=== PATIENT | female | born 1990 | race Two or more races ===

== ENCOUNTER 2018-06-10 18:14 | Emergency (ER) | payer OTHER ==
[2018-06-10 19:23] VITALS: O2SAT 100
--- NOTE | 2018-06-10 20:23 | ED PDOC ---
HPI: Abdomen Time Seen by Provider: 06/10/18 19:49 Chief Complaint (Nursing): Abdominal Pain Chief Complaint (Provider): Abdominal Pain History Per: Patient History/Exam Limitations: no limitations Onset/Duration Of Symptoms: Days Location Of Pain/Discomfort: RLQ Additional Complaint(s): Tamara Guillen is a 28 year old female with no past medical history who is presenting to the ED for evaluation of possible ectopic s/p referral from an urgent care clinic. Patient states that she had a 1 hour episode of right lower quadrant pain on Wednesday which has not reoccurred since and she has not experienced any pain today or since Wednesday. She also complains of 10 days of brown, yuniel vaginal discharge. She reports that she had a positive test, which she was aware of, and went to [facility] where she has a beta level of 5,000. Other than vaginal discharge, patient has no other medical complaints. PMD: none provided Past Medical History Reviewed: Historical Data, Nursing Documentation, Vital Signs Vital Signs: Last Vital Signs Temp 98.3 F 06/10/18 19:20 Pulse 83 06/10/18 19:20 Resp 16 06/10/18 19:20 BP 121/81 06/10/18 19:20 Pulse Ox 100 06/10/18 19:20 - Medical History PMH: No Chronic Diseases - Surgical History Surgical History: No Surg Hx - Family History Family History: States: Unknown Family Hx - Social History Current smoker - smoking cessation education provided: No Alcohol: None Drugs: Denies - Allergies Allergies/Adverse Reactions: Allergies Allergy/AdvReac Type Severity Reaction Status Date / Time No Known Allergies Allergy Verified 06/10/18 19:20 Review of Systems ROS Statement: Except As Marked, All Systems Reviewed And Found Negative Gastrointestinal: Positive for: Abdominal Pain Genitourinary Female: Positive for: Vaginal Discharge Physical Exam - Reviewed Nursing Documentation Reviewed: Yes Vital Signs Reviewed: Yes - Physical Exam Appears: Positive for: Well, Non-toxic, No Acute Distress Head Exam: Positive for: ATRAUMATIC, NORMAL INSPECTION, NORMOCEPHALIC Skin: Positive for: Normal Color, Warm, DRY Eye Exam: Positive for: EOMI, Normal appearance, PERRL ENT: Positive for: Normal ENT Inspection Neck: Positive for: Normal, Painless ROM Cardiovascular/Chest: Positive for: Regular Rate, Rhythm. Negative for: Murmur Respiratory: Positive for: Normal Breath Sounds. Negative for: Respiratory Distress Gastrointestinal/Abdominal: Positive for: Normal Exam, Soft. Negative for: Tenderness Back: Positive for: Normal Inspection Extremity: Positive for: Normal ROM. Negative for: Deformity, Swelling Neurologic/Psych: Positive for: Alert, Oriented. Negative for: Motor/Sensory Deficits - Laboratory Results Result Diagrams: 06/10/18 20:08 06/10/18 20:08 - ECG O2 Sat by Pulse Oximetry: 100 (RA) Pulse Ox Interpretation: Normal Medical Decision Making Medical Decision Making: Time: 20:08 A/P: very well appearing 28 year old with vaginal discharge --Very unlikely appendices or ectopic --Will check ultrasound and blood work, reevaluate Time: 21:51 --Patient has no signs of IUP or ectopic on U/S --Explained all results to patient --Advised her to followup Wednesday for evaluation and possibly sonogram/beta check --Well appearing, normal vitals upon discharge ---- Scribe Attestation: Documented by Tiesha Sam, acting as a scribe for Timi Mena MD. Provider Scribe Attestation: All medical record entries made by the Scribe were at my direction and personally dictated by me. I have reviewed the chart and agree that the record accurately reflects my personal performance of the history, physical exam, medical decision making, and the department course for this patient. I have also personally directed, reviewed, and agree with the discharge instructions and disposition. Disposition - Clinical Impression Clinical Impression: Threatened - Patient ED Disposition Is Patient to be Admitted: No - Disposition Referrals: Donald Nation MD [Staff Provider] - Disposition: Routine/Home Disposition Time: 21:52 Condition: STABLE Instructions: Bleeding With (DC) Forms: [employer] (Bengali)
[2018-06-10 20:31] LABS: HEMOGLOBIN 12.5 g/dL (12.0-16.0); MEAN CELL VOLUME 89.1 fl (81.0-99.0); MEAN CORPUSCULAR HEMOGLOBIN 29.2 pg (27.0-31.0); MEAN CORPUSCULAR HGB CONC 32.7 g/dL (33.0-37.0); RBC 4.28 Mil/uL (3.80-5.20); RED CELL DISTRIBUTION WIDTH 12.7 % (11.5-14.5); WHITE BLOOD COUNT 12.2 K/uL (4.8-10.8)
[2018-06-10 20:40] LABS: BLOOD UREA NITROGEN 16 mg/dl (7-17); CALCIUM 9.2 mg/dL (8.4-10.2); GFR NON-AFRICAN AMERICAN > 60
[2018-06-10 22:03] VITALS: BP 116/78; PULSE 78; RESP 18; TEMP 98
--- NOTE | 2018-06-11 08:33 | US ---
Date of service: 06/10/2018 HISTORY: Vag discharge, abd pain +preg COMPARISON: None available. TECHNIQUE: Real-time transvaginal ultrasound examination of the pelvis was performed. Beta HCG laboratory value [id number]. Patient has a history of spotting. FINDINGS: UTERUS: Measures 7.8 x 4.6 x 6.7 cm. Normal in size and appearance. No intrauterine gestation is identified. Cervix is closed. ENDOMETRIUM: Measures 24 millimeters mm in diameter. There is mild heterogeneity of the endometrial complex with a small amount of hypo echogenicity centrally but no definite intrauterine gestational sac. This will require further clinical follow-up given the patient's laboratory value. CERVIX: No cervical abnormality identified. RIGHT OVARY: Measures 2.8 x 2.1 x 2.4 cm. No solid mass. Normal flow. LEFT OVARY: Measures 2.5 x 1.7 x 1.4 cm. No solid mass. Normal flow. FREE FLUID: Trace amount of fluid in the cul-de-sac. OTHER FINDINGS: None. IMPRESSION: No evidence of intrauterine gestational sac. Thickened endometrial complex. No evidence of adnexal mass. Further clinical follow-up of this patient is suggested given the value of the beta HCG. At the present time an ectopic cannot fully be excluded. Missed could also be included in the differential diagnosis. This agrees with preliminary report provided by the on-call radiologist.
== END 2018-06-10 22:03 | disposition home or self-care (01) ==
LOC: H.ER 18:14
DX: O20.0 Threatened abortion (principal)